=== PATIENT | male | born 1965 | race Caucasian/White ===

== ENCOUNTER 2016-03-04 07:57 | Emergency (ER) | payer MEDICAID ==
[~2016-03-04] VITALS: Ht 185.4 cm; Wt 101.6 kg
[~2016-03-04 07:57] MED LIST: GLIP-116; METF-312; SERT-135 PO; TRAZADONE PO
[2016-03-04 09:00] VITALS: BP 149/51
[2016-03-04 09:35] LABS: Urine RBC None Seen /hpf (0 - 3)
[2016-03-04 09:47] LABS: Urine Bilirubin Negative (Negative); Urine Blood Negative /uL (Negative); Urine Color Yellow (Yellow); Urine Ketone Negative (Negative); Urine Nitrite Negative (Negative); Urine Squamous Epithelial Cell FEW /hpf (<5); Urine Urobilinogen Normal (Negative); Urine pH 6.5 (5.0-8.0)
[2016-03-04 09:48] LABS: Urine Glucose 4+ mg/dL (Normal)
[2016-03-04 10:03] LABS: Basophils # (auto) 0 uL; Basophils % (auto) 0.2 % (0.0-2.0); Eosinophils # (auto) 0.2 uL; Eosinophils % (auto) 1.7 % (0.0-7.0); Hemoglobin 13.9 g/dL (13.5-17.5); Lymphocytes # (auto) 1.5 uL; Lymphocytes % (auto) 13.8 % (10.0-50.0); Mean Corpuscular Hgb Conc. 33.1 g/dL (32.0-36.0); Mean Corpuscular Volume 90.5 fL (80.0-100.0); Mean Platelet Volume 8.2 fL (7.4-10.4); Monocytes # (auto) 0.5 uL; Monocytes % (auto) 4.8 % (0.0-12.0); Neutrophils # (auto) 8.8 uL; Neutrophils % (auto) 79.5 % (37.0-80.0); Platelet Count (auto) 187 10^3/uL (140-450); Red Cell Distribution Width 12.9 % (11.6-16.0); White Blood Cell 11.1 10^3/uL (4.4-10.8)
[2016-03-04] MEDS ORDERED: SODIUM CHLORIDE 0.9% 1,000 ML IVB ONE (10:11)
[2016-03-04 10:17] LABS: Albumin 4.1 g/dL (3.4-5.0); BUN/Creatinine Ratio 19.4; Bilirubin, Total 0.4 mg/dL (0.2-1.0); Calcium 8.9 mg/dL (8.5-10.1); Potassium 4.3 mmol/L (3.5-5.1); Total Protein 7.2 g/dL (6.4-8.2)
[2016-03-04 10:32] LABS: Magnesium 2.6 mg/dL (1.6-2.6)
== END 2016-03-04 12:13 | disposition home or self-care (01) ==
LOC: EDUNIT# 07:57 → ER 08:01
DX: S09.90XA Unspecified injury of head, initial encounter (principal); G81.94 Hemiplegia, unspecified affecting left nondominant side; M62.838 Other muscle spasm; E11.9 Type 2 diabetes mellitus without complications; E66.9 Obesity, unspecified; M19.90 Unspecified osteoarthritis, unspecified site; I73.9 Peripheral vascular disease, unspecified; F12.10 Cannabis abuse, uncomplicated; Z68.29 Body mass index [BMI] 29.0-29.9, adult; Z86.73 Personal history of transient ischemic attack (TIA), and cerebral infarction without residual deficits; W19.XXXA Unspecified fall, initial encounter; Y93.89 Activity, other specified; Y99.8 Other external cause status; Y92.89 Other specified places as the place of occurrence of the external cause
CPT/HCPCS: 36415; 70450; 71020; 72125; 80053; 80320; 81001; 83735; 85025; 85049; 93005; 94761; 96360; 99285; J7030

== ENCOUNTER 2016-03-09 13:32 | Inpatient (IN) | payer MEDICAID ==
[~2016-03-09] VITALS: Ht 172.7 cm; Wt 102.5 kg
[2016-03-09 14:10] LABS: Basophils # (auto) 0 uL; Eosinophils # (auto) 0.2 uL; Eosinophils % (auto) 2.1 % (0.0-7.0); Hematocrit 42.1 % (41.0-53.0); Hemoglobin 14.1 g/dL (13.5-17.5); Lymphocytes # (auto) 2.2 uL; Lymphocytes % (auto) 19.7 % (10.0-50.0); Mean Corpuscular Hemoglobin 30.1 pg (28.0-32.0); Mean Corpuscular Hgb Conc. 33.6 g/dL (32.0-36.0); Mean Corpuscular Volume 89.7 fL (80.0-100.0); Mean Platelet Volume 8.2 fL (7.4-10.4); Monocytes # (auto) 0.6 uL; Monocytes % (auto) 5.5 % (0.0-12.0); Neutrophils % (auto) 72.7 % (37.0-80.0); Platelet Count (auto) 226 10^3/uL (140-450); Red Cell Distribution Width 12.7 % (11.6-16.0)
[2016-03-09 14:32] LABS: BUN/Creatinine Ratio 21.1; Bilirubin, Total 0.4 mg/dL (0.2-1.0); Calcium 8.7 mg/dL (8.5-10.1); Potassium 4.1 mmol/L (3.5-5.1); Total Protein 7.3 g/dL (6.4-8.2)
[2016-03-09] MEDS ORDERED: HYDROmorphone HCL 2 MG/ML VL IV ONE ×2 (15:45→20:15)
[2016-03-09] MEDS ORDERED: PROMETHAZINE HCL 25 MG/ML 1ML IV ONE (15:45)
[2016-03-09] MEDS ORDERED: ONDANSETRON HCL 4 MG/2 ML VIAL IV ONE (20:15)
[2016-03-09] MEDS ORDERED: DEXTROSE (50%) 50ML SYRG IV PRN (21:15)
[2016-03-09] MEDS ORDERED: ACETAMINOPHEN 325 MG TAB PO PRN (21:15)
[2016-03-09] MEDS ORDERED: ONDANSETRON HCL 4 MG/2 ML VIAL IV PRN (21:15)
[2016-03-09] MEDS ORDERED: MORPHINE SULF INJ 2 MG/ML SYRINGE 1ML IV PRN ×2 (21:15)
[2016-03-09] MEDS ORDERED: NITROGLYCERIN 0.4 MG SL TAB SL PRN (21:15)
[2016-03-09] MEDS: FAMOTIDINE 20 MG TAB PO SCH (21:55)
[2016-03-09] MEDS: LEVETIRACETAM 500 MG TAB PO SCH (21:55)
[2016-03-09 23:30] VITALS: BP 123/78
[2016-03-10] MEDS: ACCU-CHEK COMFORT CURVE STRIP VI SCH ×5 (00:02→23:54)
[2016-03-10] MEDS ORDERED: ASPI81TA27 PO (00:31)
[2016-03-10] MEDS ORDERED: PHE100C PO (00:31)
[2016-03-10] MEDS ORDERED: GLIP-115 PO (00:31)
[2016-03-10] MEDS ORDERED: TRAM50TA2 PO (00:31)
[2016-03-10] MEDS ORDERED: CYCL5TAB PO (00:31)
[2016-03-10] MEDS ORDERED: SERT-160 PO (00:31)
[2016-03-10] MEDS ORDERED: RISP2TAB62 PO (00:31)
[2016-03-10] MEDS ORDERED: BENZ1TAB2 PO (00:31)
[2016-03-10] MEDS ORDERED: ACET500C8 PO (00:31)
[2016-03-10] MEDS ORDERED: METF-312 PO (00:31)
[2016-03-10] MEDS ORDERED: LISI-275 PO (00:31)
[2016-03-10] MEDS ORDERED: CANA300T OR (00:31)
[2016-03-10] MEDS: InsuLIN REG 1unit/0.01ml Soln (100units/ml) SC SCH ×5 (05:32→23:54)
[2016-03-10 05:44] VITALS: BP 120/71
[2016-03-10 06:07] LABS: Basophils # (auto) 0 uL; Basophils % (auto) 0.5 % (0.0-2.0); Eosinophils # (auto) 0.4 uL; Eosinophils % (auto) 4.2 % (0.0-7.0); Hematocrit 40.6 % (41.0-53.0); Hemoglobin 13.7 g/dL (13.5-17.5); Lymphocytes # (auto) 2.4 uL; Lymphocytes % (auto) 28.1 % (10.0-50.0); Mean Corpuscular Hemoglobin 30.6 pg (28.0-32.0); Mean Corpuscular Hgb Conc. 33.7 g/dL (32.0-36.0); Mean Corpuscular Volume 90.8 fL (80.0-100.0); Mean Platelet Volume 8.1 fL (7.4-10.4); Monocytes # (auto) 0.6 uL; Monocytes % (auto) 7.3 % (0.0-12.0); Neutrophils # (auto) 5.2 uL; Neutrophils % (auto) 59.9 % (37.0-80.0); Platelet Count (auto) 204 10^3/uL (140-450); Red Cell Distribution Width 12.9 % (11.6-16.0); White Blood Cell 8.7 10^3/uL (4.4-10.8)
[2016-03-10 07:04] LABS: Albumin 3.7 g/dL (3.4-5.0); Bilirubin, Total 0.4 mg/dL (0.2-1.0); Calcium 8.7 mg/dL (8.5-10.1); Potassium 4.3 mmol/L (3.5-5.1); Total Protein 6.8 g/dL (6.4-8.2)
[2016-03-10 08:47] VITALS: BP 110/68
[2016-03-10] MEDS: glipiZIDE 5 MG TAB PO SCH (09:02)
[2016-03-10] MEDS: ENOXAPARIN SOD 40 MG/0.4 ML SYRINGE SC SCH (09:04)
[2016-03-10] MEDS: FAMOTIDINE 20 MG TAB PO SCH ×2 (09:05→21:50)
[2016-03-10] MEDS: SERTRALINE HCL 50 MG TAB PO SCH (09:05)
[2016-03-10] MEDS: LEVETIRACETAM 500 MG TAB PO SCH ×2 (09:05→21:50)
[2016-03-10] MEDS: LISINOPRIL 5 MG TAB PO SCH (09:06)
[2016-03-10] MEDS: HYDROcodone-ACET 5/325MG TAB PO PRN ×2 (09:17→20:07)
[2016-03-10 14:05] VITALS: BP 130/83
[2016-03-10 17:07] VITALS: BP 117/76
[2016-03-10 22:18] VITALS: BP 104/68
[2016-03-11] MEDS: HYDROcodone-ACET 5/325MG TAB PO PRN ×4 (04:05→18:10)
[2016-03-11 05:30] VITALS: BP 131/76
[2016-03-11] MEDS: ACCU-CHEK COMFORT CURVE STRIP VI SCH ×3 (05:41→17:37)
[2016-03-11] MEDS: InsuLIN REG 1unit/0.01ml Soln (100units/ml) SC SCH ×3 (05:53→17:35)
[2016-03-11] MEDS: glipiZIDE 5 MG TAB PO SCH (08:09)
[2016-03-11 09:00] VITALS: BP 126/78
[2016-03-11] MEDS: SERTRALINE HCL 50 MG TAB PO SCH (10:19)
[2016-03-11] MEDS: LISINOPRIL 5 MG TAB PO SCH (10:20)
[2016-03-11] MEDS: FAMOTIDINE 20 MG TAB PO SCH (10:20)
[2016-03-11] MEDS: LEVETIRACETAM 500 MG TAB PO SCH (10:21)
[2016-03-11] MEDS: ENOXAPARIN SOD 40 MG/0.4 ML SYRINGE SC SCH (10:21)
[2016-03-11 13:00] VITALS: BP 135/73
== END 2016-03-11 18:45 | DRG 203 ==
LOC: EDUNIT# 13:32 → EDBD 13:32 → ER 13:36 → TELE 13:37 → TELE-EAST 23:05 → EAST 03-10 17:41
PROVIDERS: ADMIT Internal Medicine; ATTEND Internal Medicine
DX: R07.89 Other chest pain (principal); E11.65 Type 2 diabetes mellitus with hyperglycemia; I10 Essential (primary) hypertension; E87.1 Hypo-osmolality and hyponatremia; M19.90 Unspecified osteoarthritis, unspecified site; F41.9 Anxiety disorder, unspecified; E66.9 Obesity, unspecified; F32.9 Major depressive disorder, single episode, unspecified; Z82.49 Family history of ischemic heart disease and other diseases of the circulatory system; Z83.3 Family history of diabetes mellitus; Z86.73 Personal history of transient ischemic attack (TIA), and cerebral infarction without residual deficits; Z68.34 Body mass index [BMI] 34.0-34.9, adult
CPT/HCPCS: 36415; 71010; 80053; 82962; 83036; 83735; 84484; 85025; 85049; 85379; 93005; 93306; 96361; 96374; 96375; 96376; 97001; 97116; 97530; J1815; J2405